=== PATIENT | female | born 1980 | race Caucasian/White ===

== ENCOUNTER 2019-02-07 18:50 | Emergency (ER) | payer SELFPAY ==
[~2019-02-07] VITALS: Ht 180.3 cm; Wt 131.8 kg
[2019-02-07] MEDS ORDERED: ESCI10TA PO (19:14)
[2019-02-07] MEDS ORDERED: BUPR100 PO (19:14)
[2019-02-07] MEDS ORDERED: TRIA1CAP2 PO (19:14)
[2019-02-07] MEDS ORDERED: METH500T7 PO (19:14)
[2019-02-07] MEDS ORDERED: METO50 PO (19:14)
[2019-02-07] MEDS ORDERED: BUPR-93 PO (19:30)
[2019-02-07] MEDS ORDERED: AZITHROMYCIN 250 MG TABLET PO ONE (21:30)
[2019-02-07 21:39] LABS: APPEARANCE,URINE CLOUDY (CLEAR); BILIRUBIN,URINE NEGATIVE (NEGATIVE); GLUCOSE, URINE (UA) NEGATIVE (NEGATIVE); KETONES,URINE NEGATIVE (NEGATIVE); LEUKOCYTE ESTERASE ,URINE LARGE (NEGATIVE); NITRATE,URINE POSITIVE (NEGATIVE); OCCULT BLOOD,URINE TRACE (NEGATIVE); PROTEIN,URINE NEGATIVE (NEGATIVE); UROBILINOGEN,URINE 0.2 mg/dL (<=1.0)
[2019-02-07 21:46] LABS: RBC,URINE 0-2 /HPF (0-2); WBC,URINE 26-50 /HPF (0-5)
[2019-02-07 21:47] LABS: BACTERIA,URINE Many /HPF (None Seen); SQUAMOUS EPITHELIAL CELL,UR Many /LPF (None Seen)
[2019-02-07 22:45] VITALS: BP 138/86
== END 2019-02-07 22:56 | disposition home or self-care (01) ==
LOC: EMS 18:53
DX: S31.41XA Laceration without foreign body of vagina and vulva, initial encounter (principal); N34.2 Other urethritis; I10 Essential (primary) hypertension; F32.9 Major depressive disorder, single episode, unspecified; F17.210 Nicotine dependence, cigarettes, uncomplicated; F12.90 Cannabis use, unspecified, uncomplicated; Z88.5 Allergy status to narcotic agent; Z88.1 Allergy status to other antibiotic agents; X58.XXXA Exposure to other specified factors, initial encounter; Y93.89 Activity, other specified; Y92.89 Other specified places as the place of occurrence of the external cause; Y99.8 Other external cause status
CPT/HCPCS: 87086